=== PATIENT | female | born 1975 | race African-American/Black ===

== ENCOUNTER 2022-12-13 03:36 | Observation (INO) | payer OTHER ==
[2022-12-13 03:42] VITALS: BMI 29.2
[2022-12-13] MEDS ORDERED: LABETALOL HCL 5 MG/1 ML (100MG/20 ML VIAL) IVPUSH ONE ×2 (04:02→04:47)
[2022-12-13] MEDS ORDERED: LABETALOL HCL 20 MG/4 ML VIAL ONE ×2 (04:08→04:51)
[2022-12-13 04:23] LABS: BASO % 1.2 % (0-2.0); EOS % 1.2 % (0-4.5); HEMATOCRIT 40.3 % (32.4-45.2); HEMOGLOBIN 13.9 GM/dL (10.7-15.3); LYMPH % 46.2 % (8-40); MCH 27.9 pg (25.7-33.7); MCHC 34.4 g/dl (32.0-36.0); MEAN CELL VOLUME 81.3 fl (80-96); MEAN PLT VOLUME 7.6 fl (7.5-11.1); MONO % 7.3 % (3.8-10.2); NEUT % 44.1 % (42.8-82.8); PLATELET COUNT 324 10^3/uL (134-434); RBC 4.96 M/mm3 (3.60-5.2); RDW 13.5 % (11.6-15.6); WHITE BLOOD COUNT 7.3 K/mm3 (4.0-10.0)
[2022-12-13 04:41] LABS: INR 0.9 (0.83-1.09); PROTHROMBIN TIME (PATIENT) 10.4 SEC (9.7-13.0)
[2022-12-13 04:42] LABS: CHLORIDE 97 mmol/L (98-107); POTASSIUM 3.9 mmol/L (3.5-5.1); SODIUM 132 mmol/L (136-145)
[2022-12-13 04:43] LABS: ACTIVATED PTT 27.4 SECONDS (25.2-36.5)
[2022-12-13 04:44] LABS: CALCIUM 8.7 mg/dL (8.5-10.1)
[2022-12-13 04:45] LABS: ALBUMIN 3.7 g/dl (3.4-5.0); ANION GAP 9 MMOL/L (8-16); BLOOD UREA NITROGEN 7.7 mg/dL (7-18); CO2 26 mmol/L (21-32)
[2022-12-13 04:48] LABS: CREATININE 0.7 mg/dL (0.55-1.3); SGOT/AST 16 U/L (15-37); SGPT/ALT 18 U/L (13-61)
[2022-12-13 04:49] LABS: TOT PROT 7.8 g/dl (6.4-8.2)
[2022-12-13 04:50] LABS: BILIRUBIN,TOTAL 0.4 mg/dL (0.2-1)
[2022-12-13 04:51] LABS: ALK PHOS 117 U/L (45-117)
[2022-12-13] MEDS ORDERED: hydrALAZINE HCL 20 MG/ML VIAL IVPUSH ONE (05:30)
[2022-12-13] MEDS ORDERED: hydrALAZINE HCL 20 MG/ML VIAL ONE (05:37)
[2022-12-13 06:16] LABS: GLUCOSE,RANDOM 415 mg/dL (74-106)
[2022-12-13] MEDS ORDERED: NIFEdipine E.R 60 MG TABLET PO ONE (08:18)
[2022-12-13] MEDS ORDERED: NIFEdipine E.R. 30 MG TABLET PO ONE (08:18)
[2022-12-13] MEDS: NIFEdipine E.R. 90 MG TABLET PO SCH ×2 (08:25→09:36)
[2022-12-13] MEDS: INSULIN (LEVEMIR) 100 UNITS/ML UNITS SQ SCH ×2 (08:33→09:49)
[2022-12-13] MEDS: INSULIN SLIDING SCALE (NOVOLOG) 1 VIAL SQ SCH ×3 (08:34→17:20)
[2022-12-13] MEDS ORDERED: INSULIN (LEVEMIR) 100 UNITS/ML UNITS SQ SCH (10:00)
[2022-12-13] MEDS ORDERED: INSULIN (NOVOLOG) ASPART 100 UNITS/ML 10ML VIAL ONE ×2 (11:09→17:16)
[2022-12-13] MEDS ORDERED: CHLORTHALIDONE 25 MG TABLET PO SCH (12:30)
[2022-12-14] MEDS ORDERED: INSULIN (NOVOLOG) ASPART 100 UNITS/ML 10ML VIAL ONE ×3 (06:19→17:19)
[2022-12-14] MEDS: INSULIN (LEVEMIR) 100 UNITS/ML UNITS SQ SCH (06:27)
[2022-12-14] MEDS: INSULIN SLIDING SCALE (NOVOLOG) 1 VIAL SQ SCH ×3 (06:27→17:20)
[2022-12-14] MEDS: NIFEdipine E.R. 90 MG TABLET PO SCH (09:54)
[2022-12-14] MEDS: metFORMIN HCL 500 MG TABLET (FP) PO SCH ×2 (09:54→17:20)
[2022-12-14] MEDS ORDERED: LOSARTAN POTASSIUM 50 MG TABLET PO SCH (10:00)
[2022-12-14] MEDS ORDERED: INSULIN (LEVEMIR) 100 UNITS/ML UNITS SQ SCH (14:14)
[2022-12-14] MEDS: ATORVASTATIN CA 40 MG TABLET (FP) PO SCH (21:17)
[2022-12-15] MEDS ORDERED: INSULIN (NOVOLOG) ASPART 100 UNITS/ML 10ML VIAL ONE ×3 (06:20→16:21)
[2022-12-15] MEDS: INSULIN SLIDING SCALE (NOVOLOG) 1 VIAL SQ SCH ×3 (06:38→16:27)
[2022-12-15] MEDS: metFORMIN HCL 500 MG TABLET (FP) PO SCH ×2 (06:39→16:26)
[2022-12-15 08:53] VITALS: RESP 18
[2022-12-15 09:08] LABS: HEMATOCRIT 41.2 % (32.4-45.2); HEMOGLOBIN 13.9 GM/dL (10.7-15.3); MCH 27.6 pg (25.7-33.7); MCHC 33.8 g/dl (32.0-36.0); MEAN CELL VOLUME 81.7 fl (80-96); MEAN PLT VOLUME 7.6 fl (7.5-11.1); PLATELET COUNT 335 10^3/uL (134-434); RBC 5.04 M/mm3 (3.60-5.2); RDW 13.5 % (11.6-15.6)
[2022-12-15] MEDS: LOSARTAN POTASSIUM 50 MG TABLET PO SCH (09:38)
[2022-12-15] MEDS: NIFEdipine E.R. 90 MG TABLET PO SCH (09:39)
[2022-12-15 09:41] LABS: CALCIUM 8.7 mg/dL (8.5-10.1)
[2022-12-15 09:42] LABS: ALBUMIN 3.1 g/dl (3.4-5.0); BLOOD UREA NITROGEN 11.4 mg/dL (7-18)
[2022-12-15 09:45] LABS: CREATININE 0.6 mg/dL (0.55-1.3)
[2022-12-15 09:46] LABS: BILIRUBIN,TOTAL 0.8 mg/dL (0.2-1); TOT PROT 6.6 g/dl (6.4-8.2)
[2022-12-15] MEDS: INSULIN (LEVEMIR) 100 UNITS/ML UNITS SQ SCH (11:30)
[2022-12-15] MEDS: CARVEDILOL 6.25 MG TABLET (FP) PO SCH ×2 (11:37→21:06)
[2022-12-15] MEDS ORDERED: ATORVASTATIN CA 20 MG TABLET (FP) ONE (21:00)
[2022-12-15] MEDS: ATORVASTATIN CA 40 MG TABLET (FP) PO SCH (21:06)
[2022-12-15] MEDS ORDERED: INSULIN (LEVEMIR) 100 UNITS/ML UNITS SQ SCH (22:00)
[2022-12-16] MEDS: metFORMIN HCL 500 MG TABLET (FP) PO SCH (06:08)
[2022-12-16] MEDS: INSULIN (LEVEMIR) 100 UNITS/ML UNITS SQ SCH (06:26)
[2022-12-16] MEDS: INSULIN SLIDING SCALE (NOVOLOG) 1 VIAL SQ SCH ×2 (06:26→13:38)
[2022-12-16 07:55] LABS: HEMATOCRIT 40.2 % (32.4-45.2); HEMOGLOBIN 13.2 GM/dL (10.7-15.3); MCH 27.4 pg (25.7-33.7); MCHC 32.8 g/dl (32.0-36.0); MEAN CELL VOLUME 83.5 fl (80-96); MEAN PLT VOLUME 7.6 fl (7.5-11.1); PLATELET COUNT 324 10^3/uL (134-434); RBC 4.81 M/mm3 (3.60-5.2); RDW 13.5 % (11.6-15.6); WHITE BLOOD COUNT 5.5 K/mm3 (4.0-10.0)
[2022-12-16] MEDS ORDERED: CARVEDILOL 12.5 MG TABLET (FP) PO SCH (08:06)
[2022-12-16 08:13] LABS: POTASSIUM 4.2 mmol/L (3.5-5.1)
[2022-12-16 08:18] LABS: CALCIUM 8.9 mg/dL (8.5-10.1)
[2022-12-16 08:19] LABS: BLOOD UREA NITROGEN 12.2 mg/dL (7-18)
[2022-12-16 08:21] LABS: CREATININE 0.6 mg/dL (0.55-1.3)
[2022-12-16 08:22] LABS: TOT PROT 6.6 g/dl (6.4-8.2)
[2022-12-16 08:23] LABS: BILIRUBIN,TOTAL 0.6 mg/dL (0.2-1)
[2022-12-16] MEDS: LOSARTAN POTASSIUM 50 MG TABLET PO SCH (10:14)
[2022-12-16] MEDS: NIFEdipine E.R. 90 MG TABLET PO SCH (10:14)
[2022-12-16 15:08] VITALS: BP 130/65; PULSE 90; TEMP 98.7
== END 2022-12-16 15:34 | disposition home or self-care (01) ==
LOC: JER 03:36 → INTOOBSV 06:14 → JERBED 06:14 → J4W 09:42
PROVIDERS: ADMIT Internal Medicine; ATTEND Internal Medicine
PROC: 3E033NZ Introduction of Analgesics, Hypnotics, Sedatives into Peripheral Vein, Percutaneous Approach (ICD-10-PCS; principal; 2022-12-13)
PROC: 3E013VG Introduction of Insulin into Subcutaneous Tissue, Percutaneous Approach (ICD-10-PCS; 2022-12-13)
PROC: 3E033GC Introduction of Other Therapeutic Substance into Peripheral Vein, Percutaneous Approach (ICD-10-PCS; 2022-12-13)
PROC: 2Y41X5Z Packing of Nasal Region using Packing Material (ICD-10-PCS; 2022-12-13)
DX: I16.0 Hypertensive urgency (principal); R04.0 Epistaxis; R73.03 Prediabetes; R73.9 Hyperglycemia, unspecified; E87.1 Hypo-osmolality and hyponatremia
CPT/HCPCS: 30901; 36415; 71045-TC-FY; 80053; 82962; 83036; 84439; 84443; 84484; 85025; 85027; 85610; 85730; 86900; 93005; 93010; 93306-TC; 96372; 96374; 96375; 96376; 99285-25; G0378